=== PATIENT | male | born 1990 | race Caucasian/White ===

== ENCOUNTER 2023-05-31 21:55 | Emergency (ER) | payer SELFPAY ==
[2023-05-31] MEDS ORDERED: Orphenadrine 100 MG Tab.ER PO ONE (22:01)
[2023-05-31] MEDS ORDERED: Ketorolac 30 MG/ML SDV IM ONE (22:01)
== END 2023-05-31 22:40 | disposition home or self-care (01) ==
LOC: JD.ED 21:55
DX: M54.50 Low back pain, unspecified (principal); Z88.6 Allergy status to analgesic agent; Z91.040 Latex allergy status
CPT/HCPCS: 99283; A9270

== ENCOUNTER 2023-06-01 07:33 | Emergency (ER) | payer SELFPAY ==
[2023-06-01] MEDS ORDERED: predniSONE 20 MG Tab PO ONE (07:51)
[2023-06-01] MEDS ORDERED: Acetaminophen/oxyCODONE 325-5 MG Tab PO ONE (07:52)
== END 2023-06-01 08:15 | disposition home or self-care (01) ==
LOC: JD.ED 07:33
DX: M54.50 Low back pain, unspecified (principal); M54.6 Pain in thoracic spine; G89.29 Other chronic pain; Z91.040 Latex allergy status; Z88.8 Allergy status to other drugs, medicaments and biological substances; Z72.0 Tobacco use; X50.0XXA Overexertion from strenuous movement or load, initial encounter
CPT/HCPCS: 99283; A9270; J7512

== ENCOUNTER 2023-06-02 20:54 | Emergency (ER) | payer MEDICAID | END 2023-06-02 23:28 | disposition home or self-care (01) | LOC: JD.ED 20:54 | DX: R51.9 Headache, unspecified (principal); Z91.040 Latex allergy status; Z88.8 Allergy status to other drugs, medicaments and biological substances | CPT/HCPCS: 99282; 99283 ==